=== PATIENT | female | born 1990 | race Caucasian/White ===

== ENCOUNTER 2023-07-29 16:14 | Outpatient (OUT) | payer OTHER, SELFPAY ==
[2023-07-29 16:50] LABS: Basophils Absolute Auto 0.1 10^3/uL (0.0-0.1); Basophils Percent Auto 0.5 % (0.2-2.0); Eosinophils Percent Auto 0.4 % (0.9-7.0); Hematocrit 47.2 % (36.0-48.0); Hemoglobin 16.5 g/dL (12.0-16.0); Immature Granulocytes Abs Auto 0.02 10^3/uL (0.00-0.03); Immature Granulocytes Pct Auto 0.2 % (0.0-0.5); Lymphocytes Absolute Auto 3.7 10^3/uL (1.2-3.8); Lymphocytes Percent Auto 37.6 % (20.5-60.0); Mean Corpuscular Hemoglobin 34.4 pg (26.7-34.0); Mean Corpuscular Volume 98.5 fL (81.0-99.0); Mean Platelet Volume 10.3 fL (9.5-13.5); Monocytes Absolute Auto 0.6 10^3/uL (0.3-0.8); Monocytes Percent Auto 6.3 % (1.7-12.0); Neutrophils Absolute Auto 5.4 10^3/uL (1.4-6.5); Platelet Count 245 10^3/uL (150-450); Red Blood Count 4.79 10^6/uL (4.20-5.40); Red Cell Distribution Width 11.6 % (11.0-15.0); White Blood Count 9.8 10^3/uL (4.0-11.0)
[2023-07-29 17:45] LABS: Alanine Aminotransferase 27 U/L (14-59); Albumin Globulin Ratio 1.2; Albumin Level 4.6 g/dL (3.4-5.0); Alkaline Phosphatase 85 U/L (46-116); Anion Gap 13.6; Aspartate Amino Transferase 18 U/L (15-37); BUN Creatinine Ratio 14.5; Bilirubin Direct 0.1 mg/dL (0.0-0.2); Bilirubin Total 0.3 mg/dL (0.2-1.0); Calcium 9.6 mg/dL (8.5-10.1); Carbon Dioxide 26.2 mmol/L (21.0-32.0); Chloride 99 mmol/L (98-107); Chol HDL Ratio 3.4; Cholesterol 211 mg/dL (<=200); Estimated GFR (African America >60 (>=60); Estimated GFR (Non-African Ame >60 (>=60); Globulin 3.9 g/dL; Glucose 93 mg/dL (74-106); HDL Cholesterol 62 mg/dL (40-60); Potassium 3.8 mmol/L (3.5-5.1); Sodium 135 mmol/L (136-145); Total Protein 8.5 g/dL (6.4-8.2); Triglycerides 139 mg/dL (<=150); VLDL CHOLESTEROL 27.8 mg/dL
[2023-07-29 18:46] LABS: Estimated Average Glucose 100 mg/dL; Glycohemoglobin A1C 5.1 % (4.5-6.2)
== END 2023-07-29 16:15 | disposition home or self-care (01) ==
LOC: LAB 16:21
PROVIDERS: PCP Family Medicine; Visit Provider Family Medicine
DX: Z00.00 Encounter for general adult medical examination without abnormal findings (principal)
CPT/HCPCS: 36415; 80048; 80061; 80076; 83036; 84443; 85025